=== PATIENT | female | born 1930 | race Hispanic/Latino ===

== ENCOUNTER 2020-12-14 18:40 | Emergency (ER) | payer MEDICARE ==
--- NOTE | 2020-12-14 18:52 | Event Note ---
ED Screening Note Date of service: 12/14/20 Time: 18:51 ED Screening Note: Patient complains of fall with facial injury today Denies loss of consciousness or headache She denies being on blood thinners Patient states she is allergic to the tetanus vaccination This initial assessment/diagnostic orders/clinical plan/treatment(s) is/are subject to change based on patients health status, clinical progression and re- assessment by fellow clinical providers in the ED. Further treatment and workup at subsequent clinical providers discretion. Patient/guardian urged not to elope from the ED as their condition may be serious if not clinically assessed and managed. Initial orders include: CT face, head, neck
--- NOTE | 2020-12-14 19:18 | Cat Scan Report ---
CT head/brain wo con INDICATION / CLINICAL INFORMATION: 89 years Female; head injury, fall x1day. TECHNIQUE: Routine CT head without contrast. All CT scans at this location are performed using CT dos e reduction for ALARA by means of automated exposure control. COMPARISON: None. FINDINGS: BRAIN / INTRACRANIAL CONTENTS: There is a hematoma involving right frontal scalp. The motion degrades the image quality. However, there is no clear CT evidence of acute intracranial hemorrhage or signif icant mass effect. However, there is no clear CT evidence of acute intracranial hemorrhage or signifi cant mass effect. There appear to be mild cerebral white matter changes most consistent with age-appropriate microvascu lar angiopathy. Is also mild cerebral atrophy. The ventricular system is correspondingly appropriate in size and configuration. ORBITS: No significant abnormality of visualized orbits. SINUSES / MASTOIDS: No significant abnormality in the visualized paranasal sinuses or mastoid air rupert ls. CRANIOCERVICAL JUNCTION: No significant abnormality. ADDITIONAL FINDINGS: The calvarium appears intact. IMPRESSION: 1. There is a right frontal scalp hematoma. However, there is no clear CT evidence of acute intracran ial hemorrhage. Signer Name: Abdoulaye Hyde MD Signed: 12/14/2020 7:13 PM Workstation Name: [id number]
--- NOTE | 2020-12-14 19:27 | Cat Scan Report ---
CT MAXILLOFACIAL WITHOUT CONTRAST INDICATION / CLINICAL INFORMATION: head injury from fall. TECHNIQUE: All CT scans at this location are performed using CT dose reduction for ALARA by means of automated e xposure control. COMPARISON: None available. FINDINGS: FACIAL BONES: There is a hematoma involving the visualized right frontal scalp at. However, there is no CT evidence of acute fracture involving the facial bones. The orbital alves, sinuses and zygomatic arches appear intact. PARANASAL SINUSES: The paranasal sinuses are pneumatized without air-fluid levels at. The nasal septu m is essentially midline. The visualized mastoid air cells are also clear. ORBITS: The optic globes appear to demonstrate appropriate size and contour. No significant post sept al inflammatory changes are appreciated. VISUALIZED INTRACRANIAL STRUCTURES: No significant abnormality. ADDITIONAL FINDINGS: None. IMPRESSION: 1. There is a hematoma involving the right frontal scalp. However, there is no CT evidence of acute fracture of the facial bones. Signer Name: Abdoulaye Hyde MD Signed: 12/14/2020 7:22 PM Workstation Name: [id number]
--- NOTE | 2020-12-14 19:31 | Cat Scan Report ---
CT cervical spine wo con INDICATION / CLINICAL INFORMATION: 89 years Female; head injury. TECHNIQUE: Axial CT images of the cervical spine were obtained. Sagittal and coronal reformatted images were pr oduced. All CT scans at this location are performed using CT dose reduction for ALARA by means of aut omated exposure control. COMPARISON: None available. FINDINGS: POST-SURGICAL CHANGES: None. ALIGNMENT: There is no separate spondylolisthesis involving cervical spine at. VERTEBRAE: There is disc space narrowing with mild degenerative endplate changes at C6-7. Mild findin gs are noted anteriorly at C4-5 and C5-6 at. However, there is no clear CT evidence of acute fracture of the cervical spine. INTRAVERTEBRAL DISCS: The facet and uncovertebral joint hypertrophy at C4-5 results in moderate left and mild right foraminal narrowing at. There is moderate foraminal narrowing bilaterally at C5-6. The spondylosis effaces the ventral subarachnoid space at this level and at C6-7. Additionally, there is moderate to marked left foraminal narrowing at C6-7. PARASPINAL SOFT TISSUES: No prevertebral soft tissue fluid collections are identified. ADDITIONAL FINDINGS: None. IMPRESSION: 1. There is no CT evidence of acute fracture involving the cervical spine. 2. There are multilevel degenerative changes as detailed above. Signer Name: Abdoulaye Hyde MD Signed: 12/14/2020 7:26 PM Workstation Name: [id number]
--- NOTE | 2020-12-14 21:31 | Emergency Department Report ---
ED General Adult HPI - General Chief complaint: Fall Stated complaint: FALL PUI?: No Time Seen by Provider: 12/14/20 18:45 Source: patient, RN notes reviewed Mode of arrival: Ambulatory Limitations: No Limitations - History of Present Illness Initial comments: The patient is a pleasant 89-year-old female, who is currently visiting from the [place]. She presents to the ER after mechanical trip and fall. The patient states that she was in her usual state of health this afternoon, when she was at a hotel, and had a mechanical trip and fall, landing on her forehead. Prior to the fall, the patient states she was not having any symptoms. After the fall, she endorsed swelling on the right lateral aspect of her forehead, and a nasal abrasion. The patient currently denies all complaints. The patient states that she went to an urgent care center, and was referred to the emergency room. The patient is asking to be discharged. The patient states she has no physical pain at this time. She is accompanied by her /significant other, who endorses that she is at her baseline. The patient states that she is intolerant of the tetanus vaccination. -: Sudden Location: head, face Radiation: non-radiation Improves with: none Worsens with: none Associated Symptoms: denies other symptoms - Related Data Allergies Allergy/AdvReac Type Severity Reaction Status Date / Time Penicillins Allergy Rash Verified 12/14/20 18:45 ED Review of Systems ROS: Stated complaint: FALL Other details as noted in HPI Comment: All other systems reviewed and negative Skin: other (Abrasion to nose. Forehead swelling.) ED Past Medical Hx - Past Medical History Previous Medical History?: Yes Hx Hypertension: Yes - Surgical History Additional Surgical History: right knee surgery, appendectomy, - Social History Smoking Status: Never Smoker ED Physical Exam - General Limitations: No Limitations General appearance: alert, in no apparent distress - Head Head exam: Present: normocephalic, other (There is a right-sided forehead hematoma. There is a nasal abrasion noted.) - Eye Eye exam: Present: normal appearance, PERRL, EOMI, other (Visual acuity intact to finger counting, color perception, reading at a close distance). Absent: nystagmus - ENT ENT exam: Present: normal orophraynx, mucous membranes moist, TM's normal bilaterally, normal external ear exam, other (There is no nasal septal hematoma. There is no hemotympanum). Absent: normal exam (There is a nasal abrasion) - Neck Neck exam: Present: normal inspection, full ROM. Absent: tenderness, meningismus - Respiratory Respiratory exam: Present: normal lung sounds bilaterally. Absent: respiratory distress, wheezes, rales, rhonchi, stridor, decreased breath sounds - Cardiovascular Cardiovascular Exam: Present: regular rate, normal rhythm, normal heart sounds. Absent: bradycardia, tachycardia, irregular rhythm, systolic murmur, diastolic murmur, rubs, gallop - GI/Abdominal GI/Abdominal exam: Present: soft. Absent: distended, tenderness, guarding, rebound, rigid, pulsatile mass - Extremities Exam Extremities exam: Present: normal inspection, full ROM, pedal edema (1+ edema bilateral lower extremities. Right distal anterior tibial abrasion. The patient states this is subacute.), other (2+ pulses noted in the bilateral upper and lower extremities. There is no palpable cord. negative Homans sign. Muscular compartments are soft. The pelvis is stable.). Absent: calf tenderness - Back Exam Back exam: Present: normal inspection. Absent: tenderness, CVA tenderness (R), CVA tenderness (L), paraspinal tenderness, vertebral tenderness - Neurological Exam Neurological exam: Present: alert, oriented X3, normal gait, other (No facial droop. Tongue midline. Extraocular movements intact bilaterally. Facial sen sation intact to light touch in V1, V2, V3 distribution bilaterally. 5 and a 5 strength in 4 extremities. Sensation intact to light touch in 4 extremities.). Absent: motor sensory deficit - Psychiatric Psychiatric exam: Present: normal affect, normal mood - Skin Skin exam: Present: warm, abrasion (Nasal abrasion), ecchymosis (Forehead ecchymosis). Absent: rash ED Course Vital Signs 12/14/20 12/14/20 18:46 21:37 Temperature 98.6 F Pulse Rate 99 H 96 H Respiratory 20 18 Rate Blood Pressure 151/66 Blood Pressure 145/62 [Left] O2 Sat by Pulse 98 96 Oximetry ED Medical Decision Making - Lab Data Vital Signs 12/14/20 12/14/20 18:46 21:37 Temperature 98.6 F Pulse Rate 99 H 96 H Respiratory 20 18 Rate Blood Pressure 151/66 Blood Pressure 145/62 [Left] O2 Sat by Pulse 98 96 Oximetry - Radiology Data Radiology results: report reviewed, image reviewed CT cervical spine wo con INDICATION / CLINICAL INFORMATION: 89 years Female; head injury. TECHNIQUE: Axial CT images of the cervical spine were obtained. Sagittal and coronal reformatted images were produced. All CT scans at this l ocation are performed using CT dose reduction for ALARA by means of automated exposure control. COMPARISON: None available. FINDINGS: POST-SURGICAL CHANGES: None. ALIGNMENT: There is no separate spondylolisthesis involving cervical spine at. VERTEBRAE: There is disc space narrowing with mild degenerative endplate changes at C6-7. Mild findings are noted anteriorly at C4- 5 and C5-6 at. However, there is no clear CT evidence of acute fracture of the cervical spine. INTRAVERTEBRAL DISCS: The facet and uncovertebral joint hypertrophy at C4-5 results in moderate left and mild right foraminal narrowing at. There is moderate foraminal narrowing bilaterally at C5-6. The spondylosis effaces the ventral subarachnoid space at this level and at C6-7. Additionally, there is moderate to marked left foraminal narrowing at C6-7. PARASPINAL SOFT TISSUES: No prevertebral soft tissue fluid collections are identified. ADDITIONAL FINDINGS: None. IMPRESSION: 1. There is no CT evidence of acute frac ture involving the cervical spine. 2. There are multilevel degenerative changes as detailed above. Signer Name: Abdoulaye Hyde MD Signed: 12/14/2020 6:26 PM Workstation Name: [id number] CT MAXILLOFACIAL WITHOUT CONTRAST INDICATION / CLINICAL INFORMATION: head injury from fall. TECHNIQUE: All CT scans at this location are performed using CT dose reduction for ALARA by means of automated exposure control. COMPARISON: None available. FINDINGS: FACIAL BONES: There is a hematoma involving the visualized right frontal scalp at. However, there is no CT evidence of acute fracture involving the facial bones. The orbital alves, sinuses and zygomatic arches appear intact. PARANASAL SINUSES: The paranasal sinuses are pneumatized without air-fluid levels at. The nasal septum is essentially midline. The visualized mastoid air cells are also clear. ORBITS: The optic globes appear to demonstrate appropriate size and contour. No significant post septal inflammatory changes are appreciated. VISUALIZED INTRACRANIAL STRUCTURES: No significant abnormality. ADDITIONAL FINDINGS: None. IMPRESSION: 1. There is a hematoma involving the right frontal scalp. However, there is no CT evidence of acute fracture of the facial bones. Signer Name: Abdoulaye Hyde MD Signed: 12/14/2020 6:22 PM Workstation Name: [id number] CT head/brain wo con INDICATION / CLINICAL INFORMATION: 89 years Female; head injury, fall x1day. TECHNIQUE: Routine CT head without contrast. All CT scans at this location are performed using CT dose reduction for ALARA by means of automated exposure control. COMPARISON: None. FINDINGS: BRAIN / INTRACRANIAL CONTENTS: There is a hematoma involving right frontal scalp. The motion degrades the image quality. However, there is no clear CT evidence of acute intracranial hemorrhage or significant mass effect. However, there is no clear CT evidence of acute intracranial hemorrhage or significant mass effect. 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 Is also mild cerebral atrophy. The ventricular system is correspondingly appropriate in size and configuration. ORBITS: No significant abnormality of visualized orbits. SINUSES / MASTOIDS: No significant abnormality in the visualized paranasal sinuses or mastoid air cells. CRANIOCERVICAL JUNCTION: No significant abnormality. ADDITIONAL FINDINGS: The calvarium appears intact. IMPRESSION: 1. There is a right frontal scalp hematoma. However, there is no clear CT evidence of acute intracranial hemorrhage. Signer Name: Abdoulaye Hyde MD Signed: 12/14/2020 6:13 PM Workstation Name: [id number] head/brain wo con INDICATION / CLINICAL INFORMATION: 89 years Female; head injury, fall x1day. TECHNIQUE: Routine CT head without contrast. All CT scans at this location are performed using CT dose reduction for ALARA by means of automated exposure control. COMPARISON: None. FINDINGS: BRAIN / INTRACRANIAL CONTENTS: There is a hematoma involving right frontal scalp. The motion degrades the image quality. However, there is no clear CT evidence of acute intracranial hemorrhage or significant mass effect. However, there is no clear CT evidence of acute intracranial hemorrhage or significant mass effect. 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 Is also mild ce rebral atrophy. The ventricular system is correspondingly appropriate in size and configuration. ORBITS: No significant abnormality of visualized orbits. SINUSES / MASTOIDS: No significant abnormality in the visualized paranasal sinuses or mastoid air cells. CRANIOCERVICAL JUNCTION: No significant abnormality. ADDITIONAL FINDINGS: The calvarium appears intact. IMPRESSION: 1. There is a right frontal scalp hematoma. However, there is no clear CT evidence of acute intracranial hemorrhage. Signer Name: Abdoulaye Hyde MD Signed: 12/14/2020 6:13 PM Workstation Name: [id number] - Medical Decision Making Differential diagnosis, including the not limited to: Mechanical fall, nasal abrasion, forehead abrasion, intracranial injury, facial bone injury, cervical spine injury Assessment and plan: 89-year-old female, who was afebrile, with reassuring vital signs, who is clinically sober, with a GCS of 15, presenting to the ER with mechanical trip and fall, not preceded by any symptoms. Given advanced age, evidence of closed head injury, nasal abrasion, noncontrast CT scan of the brain, cervical spine, and facial bones were obtained. No emergent findings were noted. Extensive discussion had with patient and significant other regarding natural history of concussion, closed head injury. They report that they are reliable to follow-up with their primary care doctor, and they have both endorsed a desire to be discharged. I also specifically return instructions with patient's /significant other, who endorsed understanding. This patient was observed here for approximately 3.5 hours, without clinical deterioration. At the time of discharge, she is awake, alert, oriented, sober, walking with a steady gait, and understands return precautions. Critical care attestation.: If time is entered above; I have spent that time in minutes in the direct care of this critically ill patient, excluding procedure time. ED Disposition Clinical Impression: Fall, Traumatic hematoma of forehead, Nasal abrasion, Closed head injury Disposition: DC-01 TO HOME OR SELFCARE Is pt being admited?: No Does the pt Need Aspirin: No Condition: Stable Instructions: Abrasion, Facial or Scalp Contusion, Contusion, [id number] Additional Instructions: As we discussed, pain typically gets worse before gets better after mechanical fall. Avoid consumption of Motrin, ibuprofen, Naprosyn, Aleve, aspirin, and Goody powder. Patient may take [id number] Tylenol/ acetaminophen 325 mg every 4-6 hours as needed for physical pain. Patient may also alternate ice packs and heat packs as needed to areas on the body that are experiencing physical pain. Recommend follow-up with your primary care doctor within the next 3 to 5 days for repeat checkup and evaluation. We also recommend that patient avoid strenuous physical activity, contact sports. Please return to the emergency room right away with new pain, worsening of pain, migration of pain, confusion, projectile vomiting, change in mental status, inability to tolerate feeds, or any new, worsened or different symptoms not present on the initial emergency room. Referrals: KYLEIGH SAAVEDRA MD [Staff Physician] - 3-5 Days [facility] [Provider Group] - 3-5 Days
[2020-12-14 21:38] VITALS: BP 145/62
== END 2020-12-14 22:00 | disposition home or self-care (01) ==
LOC: ED 18:40
DX: S09.90XA Unspecified injury of head, initial encounter (principal); S00.31XA Abrasion of nose, initial encounter; I10 Essential (primary) hypertension; Z90.49 Acquired absence of other specified parts of digestive tract; Z98.890 Other specified postprocedural states; Z88.0 Allergy status to penicillin; W01.0XXA Fall on same level from slipping, tripping and stumbling without subsequent striking against object, initial encounter; Y93.89 Activity, other specified; Y92.89 Other specified places as the place of occurrence of the external cause; Y99.8 Other external cause status
CPT/HCPCS: 70450; 70486; 72125